=== PATIENT | male | born 1965 | race African-American/Black ===

== ENCOUNTER 2018-03-11 00:33 | Emergency (ER) | payer OTHER ==
[~2018-03-11] VITALS: Ht 172.7 cm; Wt 77.1 kg
[~2018-03-11 00:33] MED LIST: MELATONIN3 MG PO
[2018-03-11 00:36] VITALS: BP 133/91
[2018-03-11] MEDS ORDERED: TYLENOL EXTRA500 MG PO (01:03)
[2018-03-11] MEDS ORDERED: IBUPROFEN 400400 M2 PO (01:03)
[2018-03-11] MEDS ORDERED: ZANAFLEX2 MG PO (01:03)
== END 2018-03-11 01:22 | disposition home or self-care (01) ==
LOC: ER 00:33
DX: M54.5 Low back pain (principal)